=== PATIENT | female | born 1930 | race Caucasian/White ===

== ENCOUNTER → 2017-06-28 | Outpatient (CLI) | payer MEDICARE ==
--- NOTE | 2017-06-29 09:48 | US ---
History: N18.4, chronic renal disease. Renal sonography: Directed renal sonography is performed. No prior study is available for comparison. Renal cortical cysts are demonstrated bilaterally, 6 mm cyst upper pole right kidney and 9 mm cyst midpole left kidney. The renal cortical thickness is well-maintained bilaterally although the kidneys bilaterally are small in size, the right 8.6 and the left 7.6 cm. Normal renal cortical echogenicity. No solid mass. No echogenic region suggestive of stone or significant hydronephrosis. The visualized retroperitoneal soft tissues are otherwise unremarkable. Urinary bladder is not imaged. IMPRESSION: Small renal size bilaterally which may be constitutional and bilateral renal cortical cysts. Electronically signed by: Afshan Vieyra MD 06/29/2017 9:46 AM [facility] Workstation: [id number]
== END ==
LOC: LAB.O 11:55
PROVIDERS: ATTEND Internal Medicine Nephrology
DX: N18.4 Chronic kidney disease, stage 4 (severe) (principal); N28.1 Cyst of kidney, acquired